=== PATIENT | male | born 1990 | race Caucasian/White ===

== ENCOUNTER 2018-06-25 14:10 | Emergency (ER) | payer BC, OTHER ==
[2018-06-25 14:50] VITALS: BP 139/87; PULSE 52; TEMP 98.5; BMI 27.2
--- NOTE | 2018-06-25 14:51 | PDOC ---
Rapid Medical Evaluation Time Seen by Provider: 06/25/18 14:43 Medical Evaluation: Allergies Allergy/AdvReac Type Severity Reaction Status Date / Time No Known Allergies Allergy Verified 09/19/15 14:10 06/25/18 14:43 I have performed a brief in-person evaluation of this patient. The patient presents with a chief complaint of: swollen throat and runny nose since yesterday. Admits to being depressed and stressed, emotional. Reportsd cocaine use in past 2 days. Requesting to speak with someone today but denies suicidal ideation. Also reports decrease appetite. Denies pain with swallowing Pertinent physical exam findings are: HEENT: erythematous pharynx, non enlarged tonsils speech gargled lungs: clear bilateral Heart: S1S2 I have ordered the following: Ekg, rapid strep The patient will proceed to the ED for further evaluation.
[2018-06-25] MEDS ORDERED: AZITHROMYCIN 250 MG TABLET PO ONE (15:24)
[2018-06-25] MEDS ORDERED: cefTRIAXone SODIUM 1 GM VIAL ONE (15:41)
[2018-06-25] MEDS ORDERED: AZITHROMYCIN 250 MG TABLET ONE (15:41)
--- NOTE | 2018-06-25 15:42 | PDOC ---
History of Present Illness - General Chief Complaint: Psychiatric Stated Complaint: SWELLING TO THROAT Time Seen by Provider: 06/25/18 14:43 - History of Present Illness Initial Comments: 06/25/18 15:39 28-year-old male without comorbidities presents for evaluation of sore throat 2 days. He also states he's been using cocaine and drinking because of a recent breakup. He's been having unprotected sex with multiple partners and he is also requesting STD testing. Besides a sore throat he has no other symptoms. Past History - Past Medical History Allergies/Adverse Reactions: Allergies Allergy/AdvReac Type Severity Reaction Status Date / Time No Known Allergies Allergy Verified 06/25/18 14:45 Home Medications: Ambulatory Orders NK [No Known Home Medication] 09/19/15 Anemia: No Asthma: No Cancer: No Cardiac Disorders: No CVA: No COPD: No CHF: No Dementia: No Diabetes: No GI Disorders: No Disorders: No HTN: No Hypercholesterolemia: No Liver Disease: No Seizures: No Thyroid Disease: No - Surgical History Abdominal Surgery: No Appendectomy: No Cardiac Surgery: No Cholecystectomy: No Lung Surgery: No Neurologic Surgery: No Orthopedic Surgery: No - Immunization History Immunization Up to Date: Yes - Suicide/Smoking/Psychosocial Hx Smoking Status: Yes Smoking History: Current some day smoker Have you smoked in the past 12 months: Yes Number of Cigarettes Smoked Daily: 5 Information on smoking cessation initiated: Yes 'Breaking Loose' booklet given: 06/25/18 Hx Alcohol Use: No Drug/Substance Use Hx: Yes (cocaine 2 days agp) Substance Use Type: Alcohol Hx Substance Use Treatment: No Review of Systems - Review of Systems HEENTM: Yes: Throat Pain All Other Systems: Reviewed and Negative *Physical Exam - Vital Signs Last Vital Signs Temp Pulse Resp BP Pulse Ox 98.5 F 52 L 16 139/87 99 06/25/18 14:45 06/25/18 14:45 06/25/18 14:45 06/25/18 14:45 06/25/18 14:45 - Physical Exam Comments: 06/25/18 15:42 HEAD: NC/AT EYES: Conjuntiva clear Ears: Canals and TM's normal NOSE: No d/c THROAT: Moist mucous membrances, oral pharanx clear, uvula midline NECK: Supple without adenopathy CARDIAC: S1 S2 LUNGS: CTA Full and Equal breath sounds ABDOMEN: Soft NT ND MS: Full ROM in all joints without edema NEUROLOGIC: No gross sensory or motor deficits, NVID SKIN: Normal color and temperature no lesions or rashes Medical Decision Making - Medical Decision Making We'll treat for GC chlamydia, HIV test is negative. Patient has no suicidal or homicidal ideation. He will follow-up with his primary care physician this is viral pharyngitis and possible STD exposure. 06/25/18 16:45 *DC/Admit/Observation/Transfer Diagnosis at time of Disposition: Viral pharyngitis, Concern about STD in male without diagnosis - Discharge Dispostion Disposition: HOME Condition at time of disposition: Stable Decision to Admit order: No - Referrals Referrals: Naveen Royal [Non Staff, Medical] - - Patient Instructions Printed Discharge Instructions: How to Detect and Treat STDs, Chlamydia: The Silent STD, Facts About Sexually Transmitted Infections, Viral Pharyngitis, DI for Viral Pharyngitis Additional Instructions: Your HIV test is negative. However you do need to be retested in 6 months he still may be positive. Practice safe sex using condoms. Follow-up with the primary care physician in one to 2 days for further evaluation and treatment options. Her strep test is negative. This is most likely a viral pharyngitis. You were treated for gonorrhea and chlamydia today. Return to the emergency room should develop any symptoms or have any other further concerns. - Post Discharge Activity
== END 2018-06-25 16:56 | disposition home or self-care (01) ==
LOC: JERFT 14:10
DX: J02.9 Acute pharyngitis, unspecified (principal); B97.89 Other viral agents as the cause of diseases classified elsewhere; Z77.21 Contact with and (suspected) exposure to potentially hazardous body fluids
CPT/HCPCS: 36415; 87070; 87389; 87430; 87491; 87591; 99281-25

== ENCOUNTER 2021-05-03 09:19 | Emergency (ER) | payer OTHER ==
[2021-05-03 09:26] VITALS: BP 122/69; PULSE 58; TEMP 98; BMI 27.8
[2021-05-03] MEDS ORDERED: KETOROLAC TROMETHAMINE 30 MG/1 ML VIAL IM ONE (09:46)
[2021-05-03] MEDS ORDERED: KETOROLAC TROMETHAMINE 30 MG/1 ML VIAL ONE (09:54)
[2021-05-03] MEDS ORDERED: LIDOCAINE 5% TOPICAL PATCH TP ONE (12:16)
[2021-05-03] MEDS ORDERED: LIDOCAINE PATCH REMOVAL MC ONE (22:00)
== END 2021-05-03 12:48 | disposition home or self-care (01) ==
LOC: JERFT 09:19 → JER 09:19 → JERFT 12:48
PROC: 3E023GC Introduction of Other Therapeutic Substance into Muscle, Percutaneous Approach (ICD-10-PCS; principal; 2021-05-03)
DX: M54.5 Low back pain (principal)
CPT/HCPCS: 71046-TC-FY; 72131-TC; 99284-25

== ENCOUNTER 2021-10-05 01:03 | Emergency (ER) | payer OTHER ==
[2021-10-05] MEDS ORDERED: IBUPROFEN 600 MG TABLET (FP) PO ONE ×2 (01:17→01:33)
[2021-10-05 01:19] VITALS: BP 145/75; PULSE 53; TEMP 98.1; BMI 27.8
== END 2021-10-05 01:47 | disposition home or self-care (01) ==
LOC: JER 01:03
DX: S63.501A Unspecified sprain of right wrist, initial encounter (principal); W10.9XXA Fall (on) (from) unspecified stairs and steps, initial encounter
CPT/HCPCS: 73110-TC-RT-FY; 73130-TC-RT-FY; 99283-25

== ENCOUNTER 2022-01-23 13:39 | Emergency (ER) | payer BC, OTHER ==
[2022-01-23 14:10] VITALS: BP 140/84; PULSE 50; TEMP 97.3; BMI 25.9
== END 2022-01-23 15:18 ==
LOC: JERFT 13:39
DX: R21 Rash and other nonspecific skin eruption (principal)
CPT/HCPCS: 99281-25

== ENCOUNTER 2025-02-24 20:42 | Emergency (ER) | payer OTHER ==
[2025-02-24 20:55] VITALS: BP 151/71; PULSE 61; RESP 20; TEMP 98.7; BMI 25.9
[2025-02-24] MEDS ORDERED: IBUPROFEN 600 MG TABLET (FP) PO ONE ×2 (22:09→22:13)
[2025-02-24] MEDS: IBUPROFEN 600 MG TABLET (FP) PO ONE (22:18)
== END 2025-02-24 22:19 | disposition home or self-care (01) ==
LOC: JERFT 20:42
DX: S83.92XA Sprain of unspecified site of left knee, initial encounter (principal); X50.1XXA Overexertion from prolonged static or awkward postures, initial encounter
CPT/HCPCS: 73564-TC-LT-FY; 73610-TC-LT-FY; 73630-TC-LT; 99283-25

== ENCOUNTER 2025-04-07 08:18 | Day surgery (SDC) | payer OTHER ==
[2025-04-02 13:44] VITALS: BMI 27.2
[2025-04-07] MEDS ORDERED: PROPOFOL 20 ML ONE ×3 (08:26→15:20)
[2025-04-07] MEDS ORDERED: MIDAZOLAM HCL 2 MG/2 ML SINGLE DOSE VIAL ONE ×3 (08:26→15:28)
[2025-04-07] MEDS ORDERED: BUPIVACAINE HCL/PF 0.25% (2.5MG/ML) 10 ML VIAL ONE (09:47)
[2025-04-07] MEDS ORDERED: ROPIVACAINE HCL/PF 100 MG/20 ML VIAL ONE (10:45)
[2025-04-07] MEDS ORDERED: DEXAMETHASONE SOD PHOSPHATE 10 MG/1 ML VIAL ONE (10:45)
[2025-04-07] MEDS ORDERED: ONDANSETRON 4 MG/2 ML VIAL IVPUSH PRN (12:31)
[2025-04-07] MEDS ORDERED: BUPIVACAINE HCL/PF 0.5% (5MG/ML) 10 ML VIAL ONE (12:37)
[2025-04-07] MEDS ORDERED: LACTATED RINGERS SOLUTION 1,000 ML IV SCH (12:45)
[2025-04-07] MEDS ORDERED: PROPOFOL 40 ML ONE (12:46)
[2025-04-07] MEDS ORDERED: KETOROLAC TROMETHAMINE 30 MG/1 ML VIAL ONE (13:54)
[2025-04-07] MEDS ORDERED: LIDOCAINE HCL/PF 2% SDV 5ML VIAL ONE (13:54)
[2025-04-07] MEDS ORDERED: ONDANSETRON 4 MG/2 ML VIAL ONE (13:54)
[2025-04-07] MEDS ORDERED: SUCCINYLCHOLINE CHLORIDE 200 MG/10 ML SYRINGE ONE (14:10)
[2025-04-07] MEDS ORDERED: ePHEDrine SULFATE 50 MG/1 ML AMPULE ONE (14:26)
[2025-04-07] MEDS ORDERED: ACETAMINOPHEN INJECTION 100 ML ONE (15:59)
[2025-04-07] MEDS: ACETAMINOPHEN 1000 MG/100 ML BAG IVPB ONE (16:01)
[2025-04-07 17:34] VITALS: RESP 18; TEMP 9.4
[2025-04-07 18:44] VITALS: BP 118/54; PULSE 58
== END 2025-04-07 18:49 | disposition home or self-care (01) ==
LOC: MERGE 08:18 → FASU 08:18 → EDBD 08:30 → FASU 18:49
PROVIDERS: ATTEND Orthopaedic Surgery Sports Medicine
PROC: 0SBD4ZZ Excision of Left Knee Joint, Percutaneous Endoscopic Approach (ICD-10-PCS; 2025-04-07)
PROC: 0MRP47Z Replacement of Left Knee Bursa and Ligament with Autologous Tissue Substitute, Percutaneous Endoscopic Approach (ICD-10-PCS; principal; 2025-04-07 13:15)
PROC: 0SBD4ZZ Excision of Left Knee Joint, Percutaneous Endoscopic Approach (ICD-10-PCS; 2025-04-07 13:15)
DX: S83.512A Sprain of anterior cruciate ligament of left knee, initial encounter (principal); S83.242A Other tear of medial meniscus, current injury, left knee, initial encounter; M65.862 Other synovitis and tenosynovitis, left lower leg; X58.XXXA Exposure to other specified factors, initial encounter; Y92.9 Unspecified place or not applicable; Y93.9 Activity, unspecified
CPT/HCPCS: 29876; 29880; 29888; C1776; 73560-TC-LT-FY; 94760; C1768; J1100